=== PATIENT | male | born 1990 | race Caucasian/White ===

== ENCOUNTER 2023-09-16 19:17 | Emergency (ER) | payer SELFPAY ==
[2023-09-16] MEDS: Amoxicillin/Clavulanate K 875-125 MG Tab PO ONE (19:56)
[2023-09-16] MEDS: Ibuprofen 400 MG Tab PO ONE (19:56)
[2023-09-16] MEDS: Acetaminophen 500 MG Tab PO ONE (19:56)
[2023-09-16] MEDS: Lidocaine 2% Viscous Solution 15 ML UD PO ONE (19:56)
[2023-09-16] MEDS: metroNIDAZOLE 500 MG Tab PO ONE (19:57)
== END 2023-09-16 20:12 | disposition home or self-care (01) ==
LOC: FB.ED 19:17
DX: K05.6 Periodontal disease, unspecified (principal); Z88.1 Allergy status to other antibiotic agents; Z88.5 Allergy status to narcotic agent
CPT/HCPCS: 99282; A9270